=== PATIENT | female | born 1965 | race Caucasian/White ===

== ENCOUNTER 2025-01-27 14:43 | Inpatient (IN) ==
--- NOTE | 2025-01-27 15:07 | Emergency Department Note ---
Impression & Plan Anxiety and depression ED Provider Note Provider: Gigi Puentes MD CHIEF COMPLAINT: Anxiety and depression HISTORY OF PRESENT ILLNESS: Patient is a 59-year-old female history of anxiety depression reports worsening depression and intermittent thoughts of self-harm. Has been following with her primary care provider, counselors, psychiatrist. States she has been taking her medications. Has had occasional mild depression anxiety in the past but nothing to the severity for last several months. Initially started with an episode of mammograms care but that turned out okay. Has been able to get up and shower and brush her teeth but not eating much and losing weight. Has been now having intermittent thoughts of wanting to harm her self. Denies wanting to harm anyone else or hallucinations. Just is not functional and this is not like her. She states becoming frustrated and does not want to live like this. Over the last several weeks has been meeting with counselor and psychiatrist. States she feels quite anxious and has some trembling of her insides at times. PAST MEDICAL HISTORY: As noted above MEDICATIONS: Reviewed home medications SOCIAL HISTORY: , no drug or alcohol use PHYSICAL EXAM: GENERAL: alert and oriented on bed at bedside with Kleenex she is occasionally crying Head: normocephalic and atraumatic EYES: No injection, purulent discharge or icterus. Occasionally crying/tearful. EOMI. NECK: Trachea midline. ENT: Mucous membranes pink and moist. LUNGS: Airway patent. No retractions not significantly tachypneic. No work of breathing. HEART: Regular rate and rhythm. No chest wall tenderness ABDOMEN: Soft and non-tender, without guarding or rebound. SKIN: Acyanotic, warm, dry, without rashes EXTREMITIES: Without swelling, tenderness or deformity NEUROLOGICAL: No focal deficits. No aphasia. No facial droop or slurred speech. Normal strength and tone in the extremities. Sensation to gross touch normal. Ambulatory. Psych: Tearful and regularly crying, reports some passive SI but no clear plan. No HI. Not responding to external stimuli. Patient's laboratory studies and imaging reviewed. Differential includes Mood disorder, infection, hypoglycemia, electrolyte abnormalities, cardiac sources, intracerebral event, toxicologic, trauma, neurologic, as well as other pathologies. IMPRESSION/MEDICAL DECISION MAKING: Patient appears quite anxious and depressed actively crying. While has been able to complete some basic ADLs states she feels hopeless and she does not want to live like this where she cannot do what she wants to do. Normally is active with her grandchildren but has been able to for the last month or 2. Has been following outpatient counselor. Basic blood obtained here. No significant abnormalities noted. Doubt this is organic medical believe this is likely more psychiatric. She herself denies specific stressors at this time. Seen with case management social worker here. Voluntary inpatient referrals made. Evaluated by [facility] Accepted to [facility] for further inpatient psychiatric care. DIAGNOSIS: Anxiety and depression DISPOSITION: [facility] on 201. Past Med/Surg History Problem List (Updated 01/27/25 @ 15:26 by Gigi Puentes M.D.) Anxiety and depression (Acute) Weight loss, non-intentional Gastritis Abnormal mammogram of left breast Well adult on routine health check Bilateral knee pain Bilateral shoulder pain Acne Depression (Chronic) Anxiety (Chronic) Hyperlipidemia (Chronic) Medical History Shingles Surgical History No pertinent past surgical history Family History Aunt Breast cancer Brother Prostate cancer TIA (transient ischemic attack) Brother Prostate cancer Brother Prostate cancer Denies family history of Ovarian cancer Myocardial infarction Colorectal cancer Social History Smoking Status: Never smoker Second Hand Exposure: No; Hx Alcohol Use: No Hx Substance Use: No Preferred Language: Zimbabwean marital status: Current Living Situation: Spouse current occupational status: unemployed Feels Safe at Home: Yes Childhood Exposure to Second-Hand Smoke: Yes caffeine: Yes (coffee ) Dental Care, Regularly: Yes Physical Activity Frequency: Does not Exercise Seatbelt Use: always Gender Identity: Female Allergies Allergies Allergy/AdvReac Type Severity Reaction Status Date / Time No Known Allergies Allergy Verified 01/27/25 15:04 Home Meds Home Medications Medication Instructions Recorded Confirmed clonazepam 0.5 mg tablet 0.5 mg PO BID 01/27/25 01/27/25 sertraline 25 mg tablet (Zoloft) 50 mg PO DAILY 01/27/25 01/27/25 Previous Rx's Medication Instructions Recorded rosuvastatin 10 mg tablet (Crestor) 10 mg PO DAILY #90 tabs 11/04/24 lorazepam 0.5 mg tablet 1 mg (2 x 0.5 mg) PO HS PRN 12/07/24 anxiety #90 tabs buspirone 5 mg tablet See Rx Instructions PO BID #60 tabs 12/26/24 Results & Data (ED) Vital Signs Vital Signs - 24 hr 01/27/25 14:50 01/27/25 16:50 Temperature 37 C Temperature Source Temporal Artery Scan Pulse Rate 98 H Pulse Rate [Finger] 78 Pulse Rhythm [Finger] Regular Pulse Strength [Finger] Normal Respiratory Rate 16 16 Respiratory Effort / Characteristics Non-Labored Spontaneous Non-Labored Spontaneous Respiratory Depth Normal Normal Respiratory Pattern Regular Blood Pressure 182/81 H Blood Pressure [Right Arm] 171/104 H Blood Pressure Mean 114 Blood Pressure Mean [Right Arm] 126 Pulse Oximetry 98 97 Oxygen Delivery Method Room Air Room Air Sepsis Recent Fever Within 48 Hours No Sepsis New/Unexplained Change in Mental Status No Sepsis Action Taken by Nursing No Action Required Laboratory Data 01/27/25 15:40 01/27/25 15:40 Lab Results 01/27/25 01/27/25 01/27/25 Range/Units 15:31 15:35 15:40 WBC 8.46 (4.8-10.8) K/ul RBC 4.96 (4.20-5.40) M/uL Hgb 14.3 (12.0-16.0) g/dl Hct 43.4 (37.0-47.0) % MCV 87.5 (80.0-100.0) fL MCH 28.8 (25.0-34.0) pg MCHC 32.9 (32.0-36.0) g/dL RDW Std Deviation 42.1 (36.4-46.3) fL RDW Coeff of Greg 13.2 (11.5-14.5) % Plt Count 261 (130-400) K/uL MPV 12.0 (9.4-12.4) fL Immature Gran % (Auto) 0.2 % Neut % (Auto) 73.8 % Lymph % (Auto) 19.9 % [place] % (Auto) 4.8 % Eos % (Auto) 0.9 % Baso % (Auto) 0.4 % Neut # (Auto) 6.24 (1.40-6.50) K/uL Lymph # (Auto) 1.68 (1.20-3.40) K/uL [place] # (Auto) 0.41 (0.11-0.59) K/uL Eos # (Auto) 0.08 (0.00-0.50) K/uL Baso # (Auto) 0.03 (0.00-0.20) K/uL Immature Gran # (Auto) 0.02 (0.01-0.20) K/uL Sodium 137 (136-145) mmol/L Potassium 3.8 (3.5-5.1) mmol/L Chloride 100 (98-107) mmol/L Carbon Dioxide 33 H (21-32) mmol/L Anion Gap 4 (3-11) BUN 10 (6-23) mg/dl Creatinine 1.09 (0.6-1.2) mg/dl Est Cr Clr Drug Dosing 46.8 ml/min eGFR 57.80 BUN/Creatinine Ratio 9.2 L (10-20) Glucose 113 H (70-99(Fasting)) mg/dl Calcium 10.3 (8.6-10.3) mg/dl Total Bilirubin 1.6 H (0.2-1.0) mg/dl AST 21 (13-39) U/L ALT 13 (7-52) U/L Alkaline Phosphatase 70 (34-104) U/L Total Protein 8.4 H (6.0-8.3) gm/dl Albumin 5.1 H (3.4-5.0) gm/dl Globulin 3.3 (2.5-4.0) gm/dl Albumin/Globulin Ratio 1.5 (0.9-2) TSH 1.827 (0.300-4.500) uIu/ml Urine Color Yellow Urine Appearance Clear (Clear) Urine pH 5.0 (4.5-7.5) Ur Specific [place] 1.009 (1.000-1.030) Urine Protein Negative (Negative) Urine Glucose (UA) Negative (Negative) Urine Ketones Negative (Negative) Urine Blood Negative (Negative) Urine Nitrite Negative (Negative) Urine Bilirubin Negative (Negative) Urine Urobilinogen Negative (Negative) Ur Leukocyte Esterase Negative (Negative) Salicylates < 3.0 L (3.0-30) mg/dl Urine Opiates Screen Neg (Neg) Ur Methadone, Qual Neg (Neg) Urine Fentanyl Screen Neg (Neg) Acetaminophen < 3 L (10-30) ug/ml Urine Barbiturates Neg (Neg) Ur Phencyclidine (PCP) Neg (Neg) U Amphetamin/Meth Scrn Neg (Neg) MDMA (Ecstasy) Screen Neg (Neg) U Benzodiazepines Scrn Neg (Neg) Ur Cocaine Metabolite Neg (Neg) U Marijuana (THC) Screen Neg (Neg) Ethyl Alcohol mg/dL < 10.0 (<10.0) mg/dl SARS-CoV-2, RNA, NAAT NEGATIVE (NEGATIVE) Discharge Plan Visit Data Chief Complaint: Mental Health Evaluation Stated Complaint: ANXIETY AND DEPRESSION ED Provider: Gigi Puentes Discharge Problem: Anxiety and depression Patient Disposition: Admitted As Inpatient Discharge Instructions Interventions: ED Discharge Assessment Last Done: 01/27/25 18:22
[2025-01-27 16:02] LABS: Basophils # (auto) 0.03 K/uL (0.00-0.20); Basophils % (auto) 0.4 %; Eosinophils # (auto) 0.08 K/uL (0.00-0.50); Eosinophils % (auto) 0.9 %; Hematocrit (blood only) 43.4 % (37.0-47.0); Hemoglobin 14.3 g/dl (12.0-16.0); Immature Granulocytes # (auto) 0.02 K/uL (0.01-0.20); Immature Granulocytes % (auto) 0.2 %; Lymphocytes # (auto) 1.68 K/uL (1.20-3.40); Lymphocytes % (auto) 19.9 %; Mean Corpuscular Hemoglobin 28.8 pg (25.0-34.0); Mean Corpuscular Hgb Conc 32.9 g/dL (32.0-36.0); Mean Corpuscular Volume 87.5 fL (80.0-100.0); Monocytes # (auto) 0.41 K/uL (0.11-0.59); Monocytes % (auto) 4.8 %; Neutrophils # (auto) 6.24 K/uL (1.40-6.50); Neutrophils % (auto) 73.8 %; Platelet Count 261 K/uL (130-400); RDW Coefficient of Variation 13.2 % (11.5-14.5); RDW Standard Deviation 42.1 fL (36.4-46.3); Red Blood Count 4.96 M/uL (4.20-5.40); White Blood Count 8.46 K/ul (4.8-10.8)
[2025-01-27 16:15] LABS: Albumin Globulin Ratio 1.5 (0.9-2); Albumin Level 5.1 gm/dl (3.4-5.0); BUN Creatinine Ratio 9.2 (10-20); Bilirubin,Total 1.6 mg/dl (0.2-1.0); Calcium 10.3 mg/dl (8.6-10.3); Creatinine Clr Calc Pharmacy 46.8 ml/min; Globulin 3.3 gm/dl (2.5-4.0); Potassium 3.8 mmol/L (3.5-5.1); Total Protein 8.4 gm/dl (6.0-8.3)
[2025-01-27 16:16] LABS: Appearance Urine Clear (Clear); Bilirubin Urine Negative (Negative); Blood Urine Negative (Negative); Color Urine Yellow; Glucose Urine UA Negative (Negative); Ketones Urine Negative (Negative); Leukocyte Esterase Urine Negative (Negative); Nitrite Urine Negative (Negative); Protein Urine Negative (Negative); Specific Gravity Urine 1.009 (1.000-1.030); Urobilinogen Urine Negative (Negative)
[2025-01-27 16:17] LABS: Acetaminophen < 3 ug/ml (10-30); Salicylate < 3.0 mg/dl (3.0-30)
[2025-01-27 16:29] LABS: Thyroid Stimulating Hormone 1.827 uIu/ml (0.300-4.500)
[2025-01-27 16:47] LABS: Amphetamines+Metham, Urine Neg (Neg); Barbiturates, Urine Neg (Neg); Benzodiazepine, Urine Neg (Neg); Cocaine, Urine Neg (Neg); Fentanyl, Urine Neg (Neg); MDMA (Ecstacy), Urine Neg (Neg); Marijuana, Urine Neg (Neg); Methadone, Urine Neg (Neg); Opiate, Urine Neg (Neg); Phencyclidine, Urine Neg (Neg)
[2025-01-27] MEDS ORDERED: ACETAMINOPHEN 325 MG TAB PO PRN (19:08)
[2025-01-27] MEDS ORDERED: SODIUM CHLORIDE 0.65% NA SOLN 45 ML (OCEAN) PRN (19:08)
[2025-01-27] MEDS ORDERED: ALUMINUM/MAGNESIUM SUSP 30 ML UDC PO PRN (19:08)
[2025-01-27] MEDS ORDERED: BISMUTH SUBSALICYLATE 262 MG CHEW PO PRN (19:08)
[2025-01-27] MEDS: hydrOXYzine HCl 25 MG TAB PO PRN (19:33)
[2025-01-27] MEDS: LORazepam 0.5 MG TAB PO PRN (22:13)
[2025-01-28] MEDS ORDERED: ROSUVASTATIN CALCIUM 10 MG TAB PO SCH (09:00)
[2025-01-28] MEDS: SERTRALINE HCL 50 MG TABLET PO SCH (09:53)
--- NOTE | 2025-01-28 16:11 | History & Physical ---
Date of Service January 28, 2025 Impression / Recommendations Impression CORNELIA ANDRES is a 59-year-old F who currently lives with , has a history of depression and anxiety, and was admitted on 01/27/25 17:45 on a 201 voluntary commitment for anxiety and depression. Presentation consistent with major depressive disorder, recurrent, moderate to severe with anxious distress. Patient presents history of major depressive episodes with past resolution with sertraline. No clear evidence for generalized anxiety disorder and will clarify. No history of salas/hypomania/psychosis. Recent depressive episode likely triggered due to social isolation and health scare. Labs reviewed: CBC, CMP, TSH, UA, UDS, blood alcohol level unremarkable. Medications reviewed with the patient and will titrate sertraline and start propranolol for physical symptoms of anxiety; medication side effects and adverse effects discussed with the patient and she is agreeable. Would likely benefit from increased community engagement to combat social isolation. Overall, I spent a total of 75 minutes with this case including review of chart records, nursing report, review of lab work, direct evaluation of the patient at bedside, counseling the patient, multidisciplinary team meeting, orders, and documentation in the electronic health record. (1) Major depressive disorder, recurrent episode, moderate with anxious distress: (2) Weight loss, non-intentional: (3) Palpitations: Plan 01/28/2025:The patient was admitted to the [facility] ([facility]) on q15 min checks (behavioral with suicide precautions) for safety. The patient will participate in group, recreational, and milieu therapies and will be offered additional individual and family sessions as clinically appropriate. -Increase sertraline to 50 mg daily -Start propranolol 10 mg 3 times daily -Draw labs: Hemoglobin A1c, fasting lipid panel, vitamin D, vitamin B12 Inventory Assets Strengths: social supports, intelligence Needs: improved coping skills, medication adjustment Suicide Risk Level Suicide Risk Level: Moderate (q15 min suicide checks) Risk Factors Assessment Male: No : Yes Do You Have Access To A Gun?: Yes Health Problems: No Mental Health Diagnoses: Yes Substance Use Disorders: No Previous Attempt: No Family History of Suicide: No Previous Psychiatric Hospitalization: No Hopelessness: No Protective Factors Assessment Advent Beliefs: Yes : Yes Responsible for Young Children: No Employed: No Stable Relationships: Yes Supportive Family: Yes Good Rapport with Provider: Yes Absence of Any Risk Factors Above: No Psychiatric History Identifying Data CORNELIA ANDRES is a 59-year-old F who currently lives with , has a history of depression and anxiety, and was admitted on 01/27/25 17:45 on a 201 voluntary commitment for anxiety and depression. Chief Complaint "Anxiety and depression" History of Present Illness Patient reports feeling more anxious and depressed at the end of October. At that time she was getting mammogram results and had to do a recheck. Reports spiraling into worsening anxiety thinking of the worst case scenario. This was heightened by the fact that she has multiple fan members with a history of cancer from cancer. In addition her great nephew has had escalating health problems and this was on her mind. Since then has had a low mood, poor appetite, sleep dysfunction, amotivation, isolating behavior, increased physical anxiety. Complains of increased heart rate, sweating, shaking, crying spells, stomach discomfort. Denies a feeling of doom or tunnel vision. Reports past Zoloft for a few years and was effective and self-discontinued on February 2024. Denies periods of excess worry between depressive episodes. Was recently placed on Lexapro however patient was having crying spells and possible panic attack and was discontinued by ER physician. Reports feeling better here in the structured environment. 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 Denies having any GI side effects from Zoloft. Patient complains of depressed mood, inability to enjoy activities, disturbances in sleep, loss of interest, change in appetite, decreased libido, racing thoughts, crying spells, anxiety attacks, avoidance symptoms, hopelessness. Reports history of suicidal ideation however denies currently. Last SI thought was a few days ago. Denies current plan or means. Wants to learn improved coping strategies for anxiety and depression and get medication adjustments. Substance and alcohol use: No past drug or alcohol treatment. Denies alcohol or drug use.Past tobacco smoker quit 40 years ago. No caffeinated beverages daily. Medical history: Last menstrual period at 46 years of age. 4 pregnancies to live births. Family history of prostate cancer, pancreatic cancer. Psychiatric history: No past psychiatric hospitalizations. Depression and anxiety in sister and mother and alcohol dependence in brother. Sister and mother both on Lexapro. Past Psychiatric medications: clonazepam (for sleep), buspirone (for anxiety/ineffective), sertraline (Up to 100 mg,effective and was on it for a few years), Ambien (for sleep, 10 years ago, not currently taking), Ativan (for anxiety and sleep, effective), escitalopram (prematurely discontinued), Effexor (12 to 15 years ago and effective) Social history:Has outpatient PCP Dr. Jose Martin Rivas [facility], outpatient psychiatrist Dr. Hammond [facility], and counselor Rajani Cain at [facility]. Has been going to outpatient appointments and taking meds as prescribed. Resides in [facility], lives in a home with for the past 39 years. Denies violence in the home and can return home after discharge. Has access to transportation. no housing concerns. Grew up in a supportive household with 6 siblings. Father worked in construction and mother was a homemaker. Left home at 16 years of age. Sister in 2011 and father in 2014. Currently and sexually active with a heterosexual orientation. His spouse is retired. No past marriages. 2 adult children. Highest grade comp leted is 12th grade. 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 No legal problems or arrests. No particular caodaism or spiritual group. Exercises and eats healthy. Past Psychiatric History Current Psychiatric Diagnosis: Depression/Anxiety Do You Have Access To A Gun?: Yes History of Previous Suicide Attempt: No Allergies Allergy/AdvReac Type Severity Reaction Status Date / Time No Known Allergies Allergy Verified 01/27/25 15:04 Home Medications Medication Instructions Recorded Confirmed Type rosuvastatin 10 mg tablet (Crestor) 10 mg PO DAILY #90 tabs 11/04/24 01/27/25 Rx lorazepam 0.5 mg tablet 1 mg (2 x 0.5 mg) PO HS PRN 12/07/24 01/27/25 Rx anxiety #90 tabs buspirone 5 mg tablet See Rx Instructions PO BID #60 tabs 12/26/24 01/27/25 Rx clonazepam 0.5 mg tablet 0.5 mg PO BID 01/27/25 01/27/25 History sertraline 25 mg tablet (Zoloft) 50 mg PO DAILY 01/27/25 01/27/25 History Family History Family History of: None Alcohol History Hx of Alcohol Use Over the Past 12 Months: No AUDIT Total Score: 1 Smoking Use Have You Smoked or Used Tobacco Products in the Last 30 Days: No Smoking Status: Never smoker Substance History Hx of Prescription Med Misuse Over the Past 12 Months: No Hx of Over the Counter Med Misuse Over the Past 12 Months: No Hx of Inhalent Misuse Over the Past 12 Months: No Hx of Organic Substance Use Over the Past 12 Months: No Hx of Illegal Substances/Street Drug Use Over Past 12 Months: No Problems as a Result of Past Substance Use: None Identified Personal History Living Arrangements: Home Highest Grade Completed: High School Graduate Highest Grade Completed Comment: 12 Marital Status: Number Of Children: 2 Beliefs That Will Affect Care: None Patient History Medical History Shingles Surgical History No pertinent past surgical history Family History Aunt Breast cancer Brother Prostate cancer TIA (transient ischemic attack) Brother Prostate cancer Brother Prostate cancer Denies family history of Ovarian cancer Myocardial infarction Colorectal cancer Social History Smoking Status: Never smoker Second Hand Exposure: No; Hx Alcohol Use: No Hx Substance Use: No Preferred Language: Uzbek Communication Ability: Effective 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 Beliefs That Will Affect Care: None marital status: Current Living Situation: Spouse current occupational status: unemployed Feels Safe at Home: Yes Childhood Exposure to Second-Hand Smoke: Yes caffeine: Yes (coffee ) Dental Care, Regularly: Yes Physical Activity Frequency: Does not Exercise Seatbelt Use: always Gender Identity: Female Assistive Devices: Glasses Physical Exam Mental Examination: Appearance: Well Groomed Eye Contact: Maintains Eye Contact Motor Behavior: Unremarkable Speech: Soft Mood: Euthymic and Calm Affect: Anxious and Appropriate Thought Process: Intact and Linear Thought Content: Intact Hallucinations: None Insight: Fair (to limited) Judgement: Fair (to limited) Vital Signs (Past 24 Hours): Last Vital Signs Temp 36.6 C 01/28/25 06:33 Pulse 69 01/28/25 06:33 Resp 16 01/28/25 06:33 BP 120/70 01/28/25 06:33 Pulse Ox 96 01/27/25 19:25 O2 Del Method Room Air 01/27/25 19:25 Exam Statement: A physical exam was performed in the ED for the purposes of medical clearance. I accept that physical as correct and adequate for the purposes of the inpatient physical exam. Results & Data ([facility]) Laboratory Results Laboratory Results - last 24 hr 01/27/25 01/27/25 01/27/25 15:31 15:35 15:40 WBC 8.46 RBC 4.96 Hgb 14.3 Hct 43.4 MCV 87.5 MCH 28.8 MCHC 32.9 RDW Std Deviation 42.1 RDW Coeff of Greg 13.2 Plt Count 261 MPV 12.0 Immature Gran % (Auto) 0.2 Neut % (Auto) 73.8 Lymph % (Auto) 19.9 [place] % (Auto) 4.8 Eos % (Auto) 0.9 Baso % (Auto) 0.4 Neut # (Auto) 6.24 Lymph # (Auto) 1.68 [place] # (Auto) 0.41 Eos # (Auto) 0.08 Baso # (Auto) 0.03 Immature Gran # (Auto) 0.02 Sodium 137 Potassium 3.8 Chloride 100 Carbon Dioxide 33 H Anion Gap 4 BUN 10 Creatinine 1.09 Est Cr Clr Drug Dosing 46.8 eGFR 57.80 BUN/Creatinine Ratio 9.2 L Glucose 113 H Calcium 10.3 Total Bilirubin 1.6 H AST 21 ALT 13 Alkaline Phosphatase 70 Total Protein 8.4 H Albumin 5.1 H Globulin 3.3 Albumin/Globulin Ratio 1.5 TSH 1.827 Urine Color Yellow Urine Appearance Clear Urine pH 5.0 Ur Specific [place] 1.009 Urine Protein Negative Urine Glucose (UA) Negative Urine Ketones Negative Urine Blood Negative Urine Nitrite Negative Urine Bilirubin Negative Urine Urobilinogen Negative Ur Leukocyte Esterase Negative Salicylates < 3.0 L Urine Opiates Screen Neg Ur Methadone, Qual Neg Urine Fentanyl Screen Neg Acetaminophen < 3 L Urine Barbiturates Neg Ur Phencyclidine (PCP) Neg U Amphetamin/Meth Scrn Neg MDMA (Ecstasy) Screen Neg U Benzodiazepines Scrn Neg Ur Cocaine Metabolite Neg U Marijuana (THC) Screen Neg Ethyl Alcohol mg/dL < 10.0 SARS-CoV-2, RNA, NAAT NEGATIVE Current Inpatient Medications Current Inpatient Medications: Current Inpatient Medications Acetaminophen (Acetaminophen 325 Mg Tab) 650 mg PO Q4H PRN PRN Reason: Headache or Minor Fever Stop: 04/06/25 19:07 Al Hydrox/Mg Hydrox/Simethicone (Aluminum/Magnesium Susp 30 Ml Udc) 30 ml PO Q4H PRN PRN Reason: GI Upset Stop: 02/26/25 19:07 Bismuth Subsalicylate (Bismuth Subsalicylate 262 Mg Chew) 2 tab PO Q30M PRN PRN Reason: Loose Stool/Diarrhea Stop: 02/26/25 19:07 Hydroxyzine HCl (Hydroxyzine Hcl 25 Mg Tab) 50 mg PO HSZ PRN PRN Reason: Insomnia Stop: 02/26/25 19:07 Hydroxyzine HCl (Hydroxyzine Hcl 25 Mg Tab) 25 mg PO Q4H PRN PRN Reason: Anxiety Stop: 02/26/25 19:07 Last Admin: 01/28/25 10:59 Dose: 25 mg Lorazepam (Lorazepam 0.5 Mg Tab) 0.5 mg PO TID PRN PRN Reason: Anxiety Stop: 02/26/25 19:16 Last Admin: 01/28/25 08:56 Dose: 0.5 mg Magnesium Hydroxide (Magnesium Hydroxide Susp 30 Ml Udc) 30 ml PO DAILY PRN PRN Reason: Constipation Stop: 02/26/25 19:07 Propranolol HCl (Propranolol Hcl 10 Mg Tab) 10 mg PO TID MANJU Stop: 02/27/25 20:59 Rosuvastatin Calcium (Rosuvastatin Calcium 10 Mg Tab) 10 mg PO HS MANJU Stop: 02/27/25 21:59 Sertraline HCl (Sertraline Hcl 50 Mg Tablet) 50 mg PO DAILY MANJU Stop: 02/28/25 08:59 Sodium Chloride (Sodium Chloride 0.65% Na Soln 45 Ml ([place])) 1 - 2 sprays NA PRN PRN PRN Reason: Nasal Dryness/Congestion Stop: 02/26/25 19:07
[2025-01-28] MEDS: PROPRANOLOL HCL 10 MG TAB PO SCH (21:23)
[2025-01-28] MEDS: ROSUVASTATIN CALCIUM 10 MG TAB PO SCH (21:23)
[2025-01-28] MEDS: hydrOXYzine HCl 25 MG TAB PO PRN (21:51)
[2025-01-29] MEDS: SERTRALINE HCL 50 MG TABLET PO SCH (08:47)
[2025-01-29 08:53] LABS: Chol HDL Ratio 2.9 (0-5)
[2025-01-29 09:12] LABS: Estimated Average Glucose 111 mg/dl; Hemoglobin A1C 5.5 % (4.5-5.6)
[2025-01-29] MEDS: MAGNESIUM HYDROXIDE SUSP 30 ML UDC PO PRN (09:18)
[2025-01-29] MEDS: PSYLLIUM or GUAR GUM FIBER 4GM PACKET PO SCH (12:57)
--- NOTE | 2025-01-29 15:17 | Psychiatric Progress Note ---
Date of Service January 29, 2025 Impression / Recommendations Impression CORNELIA ANDRES is a 59-year-old F who currently lives with , has a history of depression and anxiety, and was admitted on 01/27/25 17:45 on a 201 voluntary commitment for anxiety and depression. Presentation consistent with major depressive disorder, recurrent, moderate to severe with anxious distress. Patient presents history of major depressive episodes with past resolution with sertraline. No clear evidence for generalized anxiety disorder and will clarify. No history of salas/hypomania/psychosis. Recent depressive episode likely triggered due to social isolation and health scare. A:Patient is tolerating the propranolol well with a decrease in physical symptoms of anxiety and will plan to continue. Patient continues to have racing thoughts and concern for compatibility with a roommate. Patient continues to ruminate about her condition and lack of improvement. Labs reviewed and A1C, lipid panel, B12 unremarkable; Vit D low and insufficient. Overall, I spent a total of 35 minutes with this case including review of chart records, nursing report, review of lab work, direct evaluation of the patient at bedside, counseling the patient, multidisciplinary team meeting, orders, and do cumentation in the electronic health record. (1) Major depressive disorder, recurrent episode, moderate with anxious distress: (2) Weight loss, non-intentional: (3) Palpitations: (4) Vitamin D insufficiency: Plan 01/29/2025: MNPR due to excess anxiety Start daily fiber supplement Start Vit D 5000u daily Automatic thoughts worksheet 01/28/2025:The patient was admitted to the [facility] ([facility]) on q15 min checks (behavioral with suicide precautions) for safety. The patient will participate in group, recreational, and milieu therapies and will be offered additional individual and family sessions as clinically appropriate. -Increase sertraline to 50 mg daily -Start propranolol 10 mg 3 times daily -Draw labs: Hemoglobin A1c, fasting lipid panel, vitamin D, vitamin B12 Inventory Assets Strengths: social supports, intelligence Needs: improved coping skills, medication adjustment Suicide Risk Level Suicide Risk Level: Moderate (q15 min suicide checks) Risk Factors Assessment Male: No : Yes Do You Have Access To A Gun?: Yes Health Problems: No Mental Health Diagnoses: Yes Substance Use Disorders: No Previous Attempt: No Family History of Suicide: No Previous Psychiatric Hospitalization: No Hopelessness: No Protective Factors Assessment Jew Beliefs: Yes : Yes Responsible for Young Children: No Employed: No Stable Relationships: Yes Supportive Family: Yes Good Rapport with Provider: Yes Absence of Any Risk Factors Above: No Interval History Identifying Information CORNELIA ANDRES is a 59-year-old F who currently lives with , has a history of depression and anxiety, and was admitted on 01/27/25 17:45 on a 201 voluntary commitment for anxiety and depression. Chief Complaint "Little anxious" Review of Systems Sleep Information Total Hours of Sleep: 5.5 Meal Information Percent Meal Consumed - Breakfast: 50 Percent Meal Consumed - Lunch: 0 Percent Meal Consumed - Dinner: 50 Nutrition Comment: patient c/o upset stomach Subjective Subjective Patient was seen & assessed and interval progress reviewed with treatment team nursing and social work Patient reports increased anxiety and has trouble going to sleep due to having a roommate. Says that even though her roommate is very nice and friendly she has difficulty controlling physical and mental symptoms of anxiety due to the new environment and new people. She reports ongoing shaking and sweating however physical symptoms have lessened with no recent palpitations or feeling overly excitable. Was able to eat breakfast this morning. Having sleep maintenance problems. Did not have a bowel movement this morning. She denies suicidal ideation. Physical Exam Mental Examination Appearance: Well Groomed Eye Contact: Maintains Eye Contact Motor Behavior: Unremarkable Speech: Soft Mood: Euthymic and Calm Affect: Anxious and Appropriate Thought Process: Intact and Linear Thought Content: Intact Hallucinations: None Insight: Fair (to limited) Judgement: Fair (to limited) Vital Signs (Past 24 Hours) Last Vital Signs Temp 36.7 C 01/29/25 06:36 Pulse 62 01/29/25 14:29 Resp 16 01/29/25 06:36 BP 131/76 01/29/25 14:29 Pulse Ox 96 01/27/25 19:25 O2 Del Method Room Air 01/27/25 19:25 Results & Data ([facility]) Laboratory Results Laboratory Results - last 24 hr 01/29/25 08:13 Estimat Average Glucose 111 Hemoglobin A1c 5.5 Triglycerides 88 Cholesterol 143 LDL Cholesterol, Calc 76 VLDL Cholesterol, Calc 18 HDL Cholesterol 49 Cholesterol/HDL Ratio 2.9 Vitamin B12 300 25-OH Vitamin D Total 23.7 L Current Inpatient Medications Current Inpatient Medications: Current Inpatient Medications Acetaminophen (Acetaminophen 325 Mg Tab) 650 mg PO Q4H PRN PRN Reason: Headache or Minor Fever Stop: 02/26/25 19:07 Al Hydrox/Mg Hydrox/Simethicone (Aluminum/Magnesium Susp 30 Ml Udc) 30 ml PO Q4H PRN PRN Reason: GI Upset Stop: 02/26/25 19:07 Bismuth Subsalicylate (Bismuth Subsalicylate 262 Mg Chew) 2 tab PO Q30M PRN PRN Reason: Loose Stool/Diarrhea Stop: 02/26/25 19:07 Hydroxyzine HCl (Hydroxyzine Hcl 25 Mg Tab) 50 mg PO HSZ PRN PRN Reason: Insomnia Stop: 02/26/25 19:07 Last Admin: 01/28/25 21:51 Dose: 50 mg Hydroxyzine HCl (Hydroxyzine Hcl 25 Mg Tab) 25 mg PO Q4H PRN PRN Reason: Anxiety Stop: 02/26/25 19:07 Last Admin: 01/28/25 10:59 Dose: 25 mg Lorazepam (Lorazepam 0.5 Mg Tab) 0.5 mg PO TID PRN PRN Reason: Anxiety Stop: 02/26/25 19:16 Last Admin: 01/28/25 08:56 Dose: 0.5 mg Magnesium Hydroxide (Magnesium Hydroxide Susp 30 Ml Udc) 30 ml PO DAILY PRN PRN Reason: Constipation Stop: 02/26/25 19:07 Last Admin: 01/29/25 09:18 Dose: 30 ml Propranolol HCl (Propranolol Hcl 10 Mg Tab) 10 mg PO TID MANJU Stop: 02/27/25 20:59 Last Admin: 01/29/25 14:28 Dose: 10 mg Psyllium Hydrophilic Mucilloid (Psyllium Or Guar Gum Fiber 4gm Packet) 4 gm PO QAM MANJU Stop: 02/28/25 12:29 Last Admin: 01/29/25 12:57 Dose: 4 gm Rosuvastatin Calcium (Rosuvastatin Calcium 10 Mg Tab) 10 mg PO HS MANJU Stop: 02/27/25 21:59 Last Admin: 01/28/25 21:23 Dose: 10 mg Sertraline HCl (Sertraline Hcl 50 Mg Tablet) 50 mg PO DAILY MANJU Stop: 02/28/25 08:59 Last Admin: 01/29/25 08:47 Dose: 50 mg Sodium Chloride (Sodium Chloride 0.65% Na Soln 45 Ml ([place])) 1 - 2 sprays NA PRN PRN PRN Reason: Nasal Dryness/Congestion Stop: 02/26/25 19:07 Mental Health & Subst Abuse Tx Therapist Name of Therapist: Rajani Lee Stationary Engineer Supervisor Name of Stationary Engineer Supervisor: None Post Discharge Appointments Primary Care Physician Name Of Family Doctor/PCP: Dr. Jose Martin Rivas
[2025-01-29] MEDS: CHOLECALCIFEROL 125 MCG (5,000 UNITS) TAB PO SCH (15:28)
[2025-01-30] MEDS: LORazepam 0.5 MG TAB PO PRN (12:09)
--- NOTE | 2025-01-30 12:52 | Psychiatric Progress Note ---
Date of Service January 30, 2025 Impression / Recommendations Impression CORNELIA ANDRES is a 59-year-old F who currently lives with , has a history of depression and anxiety, and was admitted on 01/27/25 17:45 on a 201 voluntary commitment for anxiety and depression. Presentation consistent with major depressive disorder, recurrent, moderate to severe with anxious distress. Patient presents history of major depressive episodes with past resolution with sertraline. No clear evidence for generalized anxiety disorder and will clarify. No history of salas/hypomania/psychosis. Recent depressive episode likely triggered due to social isolation and health scare. A:Patient complaining of diarrhea likely secondary to initiation of antidepressant and excess intake of food. Patient was counseled to make healthy food choices and control intake. Propranolol has been effective however patient's blood pressure is decreased; we will administer half dose 3 times daily and monitor vitals. Continues to have significant sleep maintenance dysfunction and we will schedule low-dose of lorazepam at night. Patient deficient in vitamin D and started on daily supplementation. Overall, I spent a total of 35 minutes with this case including review of chart records, nursing report, review of lab work, direct evaluation of the patient at bedside, counseling the patient, multidisciplinary team meeting, orders, and documentation in the electronic health record. (1) Major depressive disorder, recurrent episode, moderate with anxious distress: (2) Weight loss, non-intentional: (3) Palpitations: (4) Vitamin D insufficiency: Plan 01/30/2025: Reduce propranolol to 5 mg 3 times daily Start lorazepam 0.5 mg at bedtime 01/29/2025: MNPR due to excess anxiety Start daily fiber supplement Start Vit D 5000u daily Automatic thoughts worksheet 01/28/2025:The patient was admitted to the [facility] ([facility] mental health unit) on q15 min checks (behavioral with suicide precautions) for safety. The patient will participate in group, recreational, and milieu therapies and will be offered additional individual and family sessions as clinically appropriate. -Increase sertraline to 50 mg daily -Start propranolol 10 mg 3 times daily -Draw labs: Hemoglobin A1c, fasting lipid panel, vitamin D, vitamin B12 Inventory Assets Strengths: social supports, intelligence Needs: improved coping skills, medication adjustment Suicide Risk Level Suicide Risk Level: Moderate (q15 min suicide checks) Risk Factors Assessment Male: No : Yes Do You Have Access To A Gun?: Yes Health Problems: No Mental Health Diagnoses: Yes Substance Use Disorders: No Previous Attempt: No Family History of Suicide: No Previous Psychiatric Hospitalization: No Hopelessness: No Protective Factors Assessment Episcopal Beliefs: Yes : Yes Responsible for Young Children: No Employed: No Stable Relationships: Yes Supportive Family: Yes Good Rapport with Provider: Yes Absence of Any Risk Factors Above: No Interval History Identifying Information CORNELIA ANDRES is a 59-year-old F who currently lives with , has a history of depression and anxiety, and was admitted on 01/27/25 17:45 on a 201 voluntary commitment for anxiety and depression. Chief Complaint Anxiety Review of Systems Sleep Information Total Hours of Sleep: 5.5 Meal Information Percent Meal Consumed - Breakfast: 75 Percent Meal Consumed - Lunch: 0 Percent Meal Consumed - Dinner: 80 Nutrition Comment: patient c/o upset stomach Subjective Subjective Patient was seen & assessed and interval progress reviewed with treatment team nursing and social work Overnight patient slept 5.5 hours. Having repeated episodes of diarrhea. Endorsed high anxiety. BP slightly low this a.m. at 93/60. On interview the patient reports feeling more restless. Reports ongoing diarrhea throughout the night. Feels less anxious having a private room. Reports no past GI distress when initiating SSRI antidepressants. Reports not being able to sleep through the night. Complains of low mood. Reports physical symptoms of shaking and sweating recurred this morning and did not get nightly propranolol due to low blood pressure. Denies feeling dizzy or lightheaded. Denies SI. Physical Exam Mental Examination Appearance: Well Groomed Eye Contact: Maintains Eye Contact Motor Behavior: Unremarkable Speech: Soft Mood: Euthymic and Calm Affect: Anxious and Appropriate Thought Process: Intact and Linear Thought Content: Intact Hallucinations: None Insight: Fair (to limited) Judgement: Fair (to limited) Vital Signs (Past 24 Hours) Last Vital Signs Temp 36.7 C 01/30/25 06:35 Pulse 73 01/30/25 06:36 Resp 16 01/30/25 06:35 BP 93/60 L 01/30/25 06:36 Pulse Ox 96 01/27/25 19:25 O2 Del Method Room Air 01/27/25 19:25 Results & Data ([facility]) Current Inpatient Medications Current Inpatient Medications: Current Inpatient Medications Acetaminophen (Acetaminophen 325 Mg Tab) 650 mg PO Q4H PRN PRN Reason: Headache or Minor Fever Stop: 02/26/25 19:07 Al Hydrox/Mg Hydrox/Simethicone (Aluminum/Magnesium Susp 30 Ml Udc) 30 ml PO Q4H PRN PRN Reason: GI Upset Stop: 02/26/25 19:07 Bismuth Subsalicylate (Bismuth Subsalicylate 262 Mg Chew) 2 tab PO Q30M PRN PRN Reason: Loose Stool/Diarrhea Stop: 02/26/25 19:07 Hydroxyzine HCl (Hydroxyzine Hcl 25 Mg Tab) 50 mg PO HSZ PRN PRN Reason: Insomnia Stop: 02/26/25 19:07 Last Admin: 01/29/25 20:57 Dose: 50 mg Hydroxyzine HCl (Hydroxyzine Hcl 25 Mg Tab) 25 mg PO Q4H PRN PRN Reason: Anxiety Stop: 02/26/25 19:07 Last Admin: 01/28/25 10:59 Dose: 25 mg Lorazepam (Lorazepam 0.5 Mg Tab) 0.5 mg PO BID PRN PRN Reason: Anxiety Stop: 02/26/25 19:16 Last Admin: 01/30/25 12:09 Dose: 0.5 mg Lorazepam (Lorazepam 0.5 Mg Tab) 0.5 mg PO HS MANJU Stop: 03/01/25 21:59 Magnesium Hydroxide (Magnesium Hydroxide Susp 30 Ml Udc) 30 ml PO DAILY PRN PRN Reason: Constipation Stop: 02/26/25 19:07 Last Admin: 01/29/25 09:18 Dose: 30 ml Propranolol HCl (Propranolol Hcl 10 Mg Tab) 5 mg PO TID MANJU Stop: 03/01/25 13:59 Psyllium Hydrophilic Mucilloid (Psyllium Or Guar Gum Fiber 4gm Packet) 4 gm PO QAM MANJU Stop: 02/28/25 12:29 Last Admin: 01/30/25 08:42 Dose: Not Given Rosuvastatin Calcium (Rosuvastatin Calcium 10 Mg Tab) 10 mg PO HS MANJU Stop: 02/27/25 21:59 Last Admin: 01/29/25 20:56 Dose: 10 mg Sertraline HCl (Sertraline Hcl 50 Mg Tablet) 50 mg PO DAILY MANJU Stop: 02/28/25 08:59 Last Admin: 01/30/25 08:41 Dose: 50 mg Sodium Chloride (Sodium Chloride 0.65% Na Soln 45 Ml ([place])) 1 - 2 sprays NA PRN PRN PRN Reason: Nasal Dryness/Congestion Stop: 02/26/25 19:07 Vitamin D (Cholecalciferol 125 Mcg (5,000 Units) Tab) 125 mcg PO QAM MANJU Stop: 02/28/25 15:14 Last Admin: 01/30/25 08:41 Dose: 125 mcg Mental Health & Subst Abuse Tx Psychiatrist Name of Psychiatrist: [facility] Psychiatrist's Date Of Appointment With Psychiatric Provider: 02/13/25 Time of Appointment with Psychiatrist: 11AM Psychiatric Appointment Comment: In person appt Therapist Name of Therapist: Rajani Lee Therapist's Date of Therapist Appointment: 02/09/25 Time of Therapist Appointment: 11AM Therapy Appointment Comment: appt on 02/02 canceled Lead Section Supervisor Name of Lead Section Supervisor: None Post Discharge Appointments Primary Care Physician Name Of Family Doctor/PCP: Dr. Jose Martin Rivas Contact Information Discharge Discharge Address: [address] [place] [address], [place] [address]
[2025-01-30] MEDS: PROPRANOLOL HCL 10 MG TAB PO SCH (15:04)
[2025-01-30] MEDS: LORazepam 0.5 MG TAB PO SCH (20:49)
[2025-01-31] MEDS: SERTRALINE HCL 50 MG TABLET PO ONE (12:07)
--- NOTE | 2025-01-31 14:07 | Psychiatric Progress Note ---
Date of Service January 31, 2025 Impression / Recommendations Impression CORNELIA ANDRES is a 59-year-old F who currently lives with , has a history of depression and anxiety, and was admitted on 01/27/25 17:45 on a 201 voluntary commitment for anxiety and depression. Presentation consistent with major depressive disorder, recurrent, moderate to severe with anxious distress. Patient presents history of major depressive episodes with past resolution with sertraline. No clear evidence for generalized anxiety disorder and will clarify. No history of salas/hypomania/psychosis. Recent depressive episode likely triggered due to social isolation and health scare. A: Today presenting improved sleep, mood, and outlook. Diarrhea resolved. Has been tolerating propranolol well with more stable blood pressure. Plan to increase sertraline to 75 mg daily today. Overall, I spent a total of 35 minutes with this case including review of chart records, nursing report, review of lab work, direct evaluation of the patient at bedside, counseling the patient, multidisciplinary team meeting, orders, and documentation in the electronic health record. (1) Major depressive disorder, recurrent episode, moderate with anxious distress: (2) Weight loss, non-intentional: (3) Palpitations: (4) Vitamin D insufficiency: Plan 01/31/2025: Increase sertraline to 75 mg daily 01/30/2025: Reduce propranolol to 5 mg 3 times daily Start lorazepam 0.5 mg at bedtime 01/29/2025: MNPR due to excess anxiety Start daily fiber supplement Start Vit D 5000u daily Automatic thoughts worksheet 01/28/2025:The patient was admitted to the [facility] ([facility] mental health unit) on q15 min checks (behavioral with suicide precautions) for safety. The patient will participate in group, recreational, and milieu therapies and will be offered additional individual and family sessions as clinically appropriate. -Increase sertraline to 50 mg daily -Start propranolol 10 mg 3 times daily -Draw labs: Hemoglobin A1c, fasting lipid panel, vitamin D, vitamin B12 Inventory Assets Strengths: social supports, intelligence Needs: improved coping skills, medication adjustment Suicide Risk Level Suicide Risk Level: Moderate (q15 min suicide checks) Risk Factors Assessment Male: No : Yes Do You Have Access To A Gun?: Yes Health Problems: No Mental Health Diagnoses: Yes Substance Use Disorders: No Previous Attempt: No Family History of Suicide: No Previous Psychiatric Hospitalization: No Hopelessness: No Protective Factors Assessment Anabaptism Beliefs: Yes : Yes Responsible for Young Children: No Employed: No Stable Relationships: Yes Supportive Family: Yes Good Rapport with Provider: Yes Absence of Any Risk Factors Above: No Interval History Identifying Information CORNELIA ANDRES is a 59-year-old F who currently lives with , has a history of depression and anxiety, and was admitted on 01/27/25 17:45 on a 201 voluntary commitment for anxiety and depression. Chief Complaint Anxiety/Depression Review of Systems Sleep Information Total Hours of Sleep: 5.5 Meal Information Percent Meal Consumed - Breakfast: 75 Percent Meal Consumed - Lunch: 85 Percent Meal Consumed - Dinner: 90 Nutrition Comment: patient c/o upset stomach Subjective Subjective Patient was seen & assessed and interval progress reviewed with treatment team nursing and social work Patient rates mood 7 out of 10. Slept 5.5 hours. Blood pressures are within normal range. No diarrhea episodes overnight. Has been eating well. She reports sleeping better and was able to stay asleep at the beginning of the night. Feels more rested. Feels less of a "adrenaline" response and is calmer. Complains of some sweats upon awakening. Reports increased anxiety in the morning. No bowel movement since yesterday. She denies suicidal ideation. She reports future fears of going back home and not knowing what to do. She appreciates the structure of the unit. Has been speaking with her who says that she is doing much better. Physical Exam Mental Examination Appearance: Well Groomed Eye Contact: Maintains Eye Contact Motor Behavior: Unremarkable Speech: Soft Mood: Euthymic and Calm Affect: Appropriate and Calm Thought Process: Intact and Linear Thought Content: Intact Hallucinations: None Insight: Fair (to limited) Judgement: Fair (to limited) Vital Signs (Past 24 Hours) Last Vital Signs Temp 36.7 C 01/31/25 06:30 Pulse 72 01/31/25 08:45 Resp 16 01/31/25 06:30 BP 116/70 01/31/25 08:45 Pulse Ox 96 01/27/25 19:25 O2 Del Method Room Air 01/27/25 19:25 Results & Data ([facility]) Current Inpatient Medications Current Inpatient Medications: Current Inpatient Medications Acetaminophen (Acetaminophen 325 Mg Tab) 650 mg PO Q4H PRN PRN Reason: Headache or Minor Fever Stop: 02/26/25 19:07 Al Hydrox/Mg Hydrox/Simethicone (Aluminum/Magnesium Susp 30 Ml Udc) 30 ml PO Q4H PRN PRN Reason: GI Upset Stop: 02/26/25 19:07 Bismuth Subsalicylate (Bismuth Subsalicylate 262 Mg Chew) 2 tab PO Q30M PRN PRN Reason: Loose Stool/Diarrhea Stop: 02/26/25 19:07 Hydroxyzine HCl (Hydroxyzine Hcl 25 Mg Tab) 50 mg PO HSZ PRN PRN Reason: Insomnia Stop: 02/26/25 19:07 Last Admin: 01/29/25 20:57 Dose: 50 mg Hydroxyzine HCl (Hydroxyzine Hcl 25 Mg Tab) 25 mg PO Q4H PRN PRN Reason: Anxiety Stop: 02/26/25 19:07 Last Admin: 01/28/25 10:59 Dose: 25 mg Lorazepam (Lorazepam 0.5 Mg Tab) 0.5 mg PO BID PRN PRN Reason: Anxiety Stop: 02/26/25 19:16 Last Admin: 01/30/25 12:09 Dose: 0.5 mg Lorazepam (Lorazepam 0.5 Mg Tab) 0.5 mg PO HS MANJU Stop: 03/01/25 21:59 Last Admin: 01/30/25 20:49 Dose: 0.5 mg Magnesium Hydroxide (Magnesium Hydroxide Susp 30 Ml Udc) 30 ml PO DAILY PRN PRN Reason: Constipation Stop: 02/26/25 19:07 Last Admin: 01/29/25 09:18 Dose: 30 ml Propranolol HCl (Propranolol Hcl 10 Mg Tab) 5 mg PO TID MNAJU Stop: 03/01/25 13:59 Last Admin: 01/31/25 08:48 Dose: 5 mg Psyllium Hydrophilic Mucilloid (Psyllium Or Guar Gum Fiber 4gm Packet) 4 gm PO QAM MANJU Stop: 02/28/25 12:29 Last Admin: 01/31/25 11:13 Dose: Not Given Rosuvastatin Calcium (Rosuvastatin Calcium 10 Mg Tab) 10 mg PO HS MANJU Stop: 02/27/25 21:59 Last Admin: 01/30/25 20:49 Dose: 10 mg Sertraline HCl (Sertraline Hcl 50 Mg Tablet) 75 mg PO DAILY MANJU Stop: 03/03/25 08:59 Sodium Chloride (Sodium Chloride 0.65% Na Soln 45 Ml ([place])) 1 - 2 sprays NA PRN PRN PRN Reason: Nasal Dryness/Congestion Stop: 02/26/25 19:07 Vitamin D (Cholecalciferol 125 Mcg (5,000 Units) Tab) 125 mcg PO QAM MANJU Stop: 02/28/25 15:14 Last Admin: 01/31/25 08:48 Dose: 125 mcg Mental Health & Subst Abuse Tx Psychiatrist Name of Psychiatrist: [facility] Psychiatrist's Date Of Appointment With Psychiatric Provider: 02/13/25 Time of Appointment with Psychiatrist: 11AM Psychiatric Appointment Comment: In person appt Therapist Name of Therapist: Rajani Lee Therapist's Date of Therapist Appointment: 02/09/25 Time of Therapist Appointment: 11AM Therapy Appointment Comment: appt on 02/02 canceled Board Filler Name of Board Filler: None Post Discharge Appointments Primary Care Physician Name Of Family Doctor/PCP: Dr. Jose Martin Rivas Contact Information Discharge Discharge Address: [id number] [place] [address], [place] [address]
[2025-02-01] MEDS: SERTRALINE HCL 50 MG TABLET PO SCH (08:49)
--- NOTE | 2025-02-01 11:36 | Psychiatric Progress Note ---
Date of Service February 01, 2025 Impression / Recommendations Impression CORNELIA ANDRES is a 59-year-old F who currently lives with , has a history of depression and anxiety, and was admitted on 01/27/25 17:45 on a 201 voluntary commitment for anxiety and depression. Presentation consistent with major depressive disorder, recurrent, moderate to severe with anxious distress. Patient presents history of major depressive episodes with past resolution with sertraline. No clear evidence for generalized anxiety disorder and will clarify. No history of salas/hypomania/psychosis. Recent depressive episode likely triggered due to social isolation and health scare. A: Patient continues to have physical symptoms of anxiety and appears distressed at times. Worse in the morning. Overall has presented improved mood with a more reactive and bright affect. Has been tolerating the sertraline well with no increase in GI distress. Today she was counseled about mindfulness meditation and breathing exercises. She was encouraged to engage in regular cognitive behavioral therapy and goal setting with her therapist. Overall, I spent a total of 35 minutes with this case including review of chart records, nursing report, review of lab work, direct evaluation of the patient at bedside, counseling the patient, multidisciplinary team meeting, orders, and documentation in the electronic health record. (1) Major depressive disorder, recurrent episode, moderate with anxious distress: (2) Weight loss, non-intentional: (3) Palpitations: (4) Vitamin D insufficiency: Plan 02/01/2025: Continue medications and treatment plan 01/31/2025: Increase sertraline to 75 mg daily 01/30/2025: Reduce propranolol to 5 mg 3 times daily Start lorazepam 0.5 mg at bedtime 01/29/2025: MNPR due to excess anxiety Start daily fiber supplement Start Vit D 5000u daily Automatic thoughts worksheet 01/28/2025:The patient was admitted to the [facility] ([facility] inpatient mental health unit) on q15 min checks (behavioral with suicide precautions) for safety. The patient will participate in group, recreational, and milieu therapies and will be offered additional individual and family sessions as clinically appropriate. -Increase sertraline to 50 mg daily -Start propranolol 10 mg 3 times daily -Draw labs: Hemoglobin A1c, fasting lipid panel, vitamin D, vitamin B12 Inventory Assets Strengths: social supports, intelligence Needs: improved coping skills, medication adjustment Suicide Risk Level Suicide Risk Level: Moderate (q15 min suicide checks) Risk Factors Assessment Male: No : Yes Do You Have Access To A Gun?: Yes Health Problems: No Mental Health Diagnoses: Yes Substance Use Disorders: No Previous Attempt: No Family History of Suicide: No Previous Psychiatric Hospitalization: No Hopelessness: No Protective Factors Assessment Spiritism Beliefs: Yes : Yes Responsible for Young Children: No Employed: No Stable Relationships: Yes Supportive Family: Yes Good Rapport with Provider: Yes Absence of Any Risk Factors Above: No Interval History Identifying Information CORNELIA ANDRES is a 59-year-old F who currently lives with , has a history of depression and anxiety, and was admitted on 01/27/25 17:45 on a 201 voluntary commitment for anxiety and depression. Chief Complaint Anxiety/depression Review of Systems Sleep Information Total Hours of Sleep: 6.5 Meal Information Percent Meal Consumed - Breakfast: 20 Percent Meal Consumed - Lunch: 85 Percent Meal Consumed - Dinner: 75 Nutrition Comment: patient c/o upset stomach Subjective Subjective Patient was seen & assessed and interval progress reviewed with treatment team nursing and social work Slept 6.5 hours. No GI distress. Family visited. Complains of morning anxiety being worse. Complains of sweaty palms. Received Ativan as needed in the a.m. She denied suicidal ideation. Reports that her mind is racing. Feels the Ativan was somewhat effective for anxiety. Reports anxiety about going home and being in distress situation. Requesting for anxiety PRN once she is at home. Asks about how to optimize therapy and psychiatric care on outpatient basis. Physical Exam Mental Examination Appearance: Well Groomed Eye Contact: Maintains Eye Contact Motor Behavior: Unremarkable Speech: Soft Mood: Euthymic and Calm Affect: Appropriate and Calm Thought Process: Intact and Linear Thought Content: Intact Hallucinations: None Insight: Fair (to limited) Judgement: Fair (to limited) Vital Signs (Past 24 Hours) Last Vital Signs Temp 37 C 02/01/25 06:30 Pulse 82 02/01/25 06:30 Resp 16 02/01/25 06:30 BP 110/68 02/01/25 06:30 Pulse Ox 96 01/27/25 19:25 O2 Del Method Room Air 01/27/25 19:25 Results & Data ([facility]) Current Inpatient Medications Current Inpatient Medications: Current Inpatient Medications Acetaminophen (Acetaminophen 325 Mg Tab) 650 mg PO Q4H PRN PRN Reason: Headache or Minor Fever Stop: 02/26/25 19:07 Al Hydrox/Mg Hydrox/Simethicone (Aluminum/Magnesium Susp 30 Ml Udc) 30 ml PO Q4H PRN PRN Reason: GI Upset Stop: 02/26/25 19:07 Bismuth Subsalicylate (Bismuth Subsalicylate 262 Mg Chew) 2 tab PO Q30M PRN PRN Reason: Loose Stool/Diarrhea Stop: 02/26/25 19:07 Hydroxyzine HCl (Hydroxyzine Hcl 25 Mg Tab) 50 mg PO HSZ PRN PRN Reason: Insomnia Stop: 02/26/25 19:07 Last Admin: 01/29/25 20:57 Dose: 50 mg Hydroxyzine HCl (Hydroxyzine Hcl 25 Mg Tab) 25 mg PO Q4H PRN PRN Reason: Anxiety Stop: 02/26/25 19:07 Last Admin: 01/28/25 10:59 Dose: 25 mg Lorazepam (Lorazepam 0.5 Mg Tab) 0.5 mg PO BID PRN PRN Reason: Anxiety Stop: 02/26/25 19:16 Last Admin: 02/01/25 08:24 Dose: 0.5 mg Lorazepam (Lorazepam 0.5 Mg Tab) 0.5 mg PO HS MANJU Stop: 03/01/25 21:59 Last Admin: 01/31/25 21:18 Dose: 0.5 mg Magnesium Hydroxide (Magnesium Hydroxide Susp 30 Ml Udc) 30 ml PO DAILY PRN PRN Reason: Constipation Stop: 02/26/25 19:07 Last Admin: 01/29/25 09:18 Dose: 30 ml Propranolol HCl (Propranolol Hcl 10 Mg Tab) 5 mg PO TID MANJU Stop: 03/01/25 13:59 Last Admin: 02/01/25 08:51 Dose: 5 mg Psyllium Hydrophilic Mucilloid (Psyllium Or Guar Gum Fiber 4gm Packet) 4 gm PO QAM MANJU Stop: 02/28/25 12:29 Last Admin: 02/01/25 08:49 Dose: Not Given Rosuvastatin Calcium (Rosuvastatin Calcium 10 Mg Tab) 10 mg PO HS MANJU Stop: 02/27/25 21:59 Last Admin: 01/31/25 21:18 Dose: 10 mg Sertraline HCl (Sertraline Hcl 50 Mg Tablet) 75 mg PO DAILY MANJU Stop: 03/03/25 08:59 Last Admin: 02/01/25 08:49 Dose: 75 mg Sodium Chloride (Sodium Chloride 0.65% Na Soln 45 Ml ([place])) 1 - 2 sprays NA PRN PRN PRN Reason: Nasal Dryness/Congestion Stop: 02/26/25 19:07 Vitamin D (Cholecalciferol 125 Mcg (5,000 Units) Tab) 125 mcg PO QAM MANJU Stop: 02/28/25 15:14 Last Admin: 02/01/25 08:52 Dose: 125 mcg Mental Health & Subst Abuse Tx Psychiatrist Name of Psychiatrist: [facility] Psychiatrist's Date Of Appointment With Psychiatric Provider: 02/13/25 Time of Appointment with Psychiatrist: 11AM Psychiatric Appointment Comment: In person appt Therapist Name of Therapist: Rajani Lee Therapist's Date of Therapist Appointment: 02/09/25 Time of Therapist Appointment: 11AM Therapy Appointment Comment: appt on 02/02 canceled Evaluation Engineer Name of Evaluation Engineer: None Post Discharge Appointments Primary Care Physician Name Of Family Doctor/PCP: Dr. Jose Martin Rivas-[facility] Contact Information Discharge Discharge Address: [address], [place] [address]
[2025-02-01 21:49] VITALS: RESP 16; TEMP 98.4; O2SAT 98
--- NOTE | 2025-02-02 09:42 | Discharge Summary ---
Date of Service February 02, 2025 History of Present Illness Patient reports feeling more anxious and depressed at the end of October. At that time she was getting mammogram results and had to do a recheck. Reports spiraling into worsening anxiety thinking of the worst case scenario. This was heightened by the fact that she has multiple fan members with a history of cancer from cancer. In addition her great nephew has had escalating health problems and this was on her mind. Since then has had a low mood, poor appetite, sleep dysfunction, amotivation, isolating behavior, increased physical anxiety. Complains of increased heart rate, sweating, shaking, crying spells, stomach discomfort. Denies a feeling of doom or tunnel vision. Reports past Zoloft for a few years and was effective and self-discontinued on February 2024. Denies periods of excess worry between depressive episodes. Was recently placed on Lexapro however patient was having crying spells and possible panic attack and was discontinued by ER physician. Reports feeling better here in the structured environment. 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 Denies having any GI side effects from Zoloft. Patient complains of depressed mood, inability to enjoy activities, disturbances in sleep, loss of interest, change in appetite, decreased libido, racing thoughts, crying spells, anxiety attacks, avoidance symptoms, hopelessness. Reports history of suicidal ideation however denies currently. Last SI thought was a few days ago. Denies current plan or means. Wants to learn improved coping strategies for anxiety and depression and get medication adjustments. Substance and alcohol use: No past drug or alcohol treatment. Denies alcohol or drug use.Past tobacco smoker quit 40 years ago. No caffeinated beverages daily. Medical history: Last menstrual period at 46 years of age. 4 pregnancies to live births. Family history of prostate cancer, pancreatic cancer. Psychiatric history: No past psychiatric hospitalizations. Depression and anxiety in sister and mother and alcohol dependence in brother. Sister and mother both on Lexapro. Past Psychiatric medications: clonazepam (for sleep), buspirone (for anxiety/ineffective), sertraline (Up to 100 mg,effective and was on it for a few years), Ambien (for sleep, 10 years ago, not currently taking), Ativan (for anxiety and sleep, effective), escitalopram (prematurely discontinued), Effexor (12 to 15 years ago and effective) Social history:Has outpatient PCP Dr. Jose Martin Rivas [facility], outpatient psychiatrist Dr. Hammond [facility], and counselor Rajani Cain at [facility]. Has been going to outpatient appointments and taking meds as prescribed. Resides in [place], lives in a home with for the past 39 years. Denies violence in the home and can return home after discharge. Has access to transportation. no housing concerns. Grew up in a supportive household with 6 siblings. Father worked in construction and mother was a homemaker. Left home at 16 years of age. Sister in 2011 and father in 2014. Currently and sexually active with a heterosexual orientation. His spouse is retired. No past marriages. 2 adult children. Highest grade completed is 12th grade. 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 No legal problems or arrests. No particular temple or spiritual group. Exercises and eats healthy. Physical Exam Mental Examination Appearance: Well Groomed Eye Contact: Maintains Eye Contact Motor Behavior: Unremarkable Speech: Soft Mood: Euthymic and Calm Affect: Appropriate and Calm Thought Process: Intact and Linear Thought Content: Intact Hallucinations: None Insight: Fair (to limited) Judgement: Fair (to limited) Vital Signs (Past 24 Hours) Last Vital Signs Temp 36.9 C 02/02/25 06:34 Pulse 66 02/02/25 09:06 Resp 16 02/02/25 06:34 BP 123/70 02/02/25 09:06 Pulse Ox 98 02/01/25 21:20 O2 Del Method Room Air 02/01/25 21:20 Principal Diagnosis Major depressive disorder, recurrent episode, moderate with anxious distress: Psychiatric Data See daily stay summary. In short, safety was maintained and the patient was cooperative with care. Medication changes included starting Sertraline 100mg daily, Propranolol 10mg TID, and short term Lorazepam for insomnia and they tolerated this well. A family session was held and safety plan was completed prior to discharge. Pt presented a significant improvement in physical anxiety symptoms with a brighter and more reactive affect. Likely excess anxiety 2/2 depression rather than PAULA. Was encouraged to work on CBT and goal setting with therapist. No suicidal ideation through the hospitalization and she is able to contract for safety. Day of Discharge Assessment Today the patient voices readiness for discharge. They note improvement in mood and deny thoughts to harm self or others. Thoughts remain organized and they are improved from admission. There is no evidence of psychosis. They agree to take mediations as prescribed and keep follow-up appointments. They are stable for discharge to outpatient level of care. Transition of Care Transition Of Care Record: was reviewed with the patient Advance Directives Advance Directives Information Provided: Yes Advance Directives: No Mental Health Advance Directive: No Advance Directives on File: No Living Will: No Power of Meat Counter Worker: No Advance Directives Reason:: Declines as Mental Health Visit. Risk Factors Assessment Male: No : Yes Do You Have Access To A Gun?: Yes Health Problems: No Mental Health Diagnoses: Yes Substance Use Disorders: No Previous Attempt: No Family History of Suicide: No Previous Psychiatric Hospitalization: No Hopelessness: No Protective Factors Assessment Restorationist Beliefs: Yes : Yes Responsible for Young Children: No Employed: No Stable Relationships: Yes Supportive Family: Yes Good Rapport with Provider: Yes Absence of Any Risk Factors Above: No Discharge Data Lab Results 01/27/25 01/27/25 01/27/25 15:31 15:35 15:40 WBC 8.46 RBC 4.96 Hgb 14.3 Hct 43.4 MCV 87.5 MCH 28.8 MCHC 32.9 RDW Std Deviation 42.1 RDW Coeff of Greg 13.2 Plt Count 261 MPV 12.0 Immature Gran % (Auto) 0.2 Neut % (Auto) 73.8 Lymph % (Auto) 19.9 Garza % (Auto) 4.8 Eos % (Auto) 0.9 Baso % (Auto) 0.4 Neut # (Auto) 6.24 Lymph # (Auto) 1.68 Garza # (Auto) 0.41 Eos # (Auto) 0.08 Baso # (Auto) 0.03 Immature Gran # (Auto) 0.02 Sodium 137 Potassium 3.8 Chloride 100 Carbon Dioxide 33 H Anion Gap 4 BUN 10 Creatinine 1.09 Est Cr Clr Drug Dosing 46.8 eGFR 57.80 BUN/Creatinine Ratio 9.2 L Glucose 113 H Estimat Average Glucose Hemoglobin A1c Calcium 10.3 Total Bilirubin 1.6 H AST 21 ALT 13 Alkaline Phosphatase 70 Total Protein 8.4 H Albumin 5.1 H Globulin 3.3 Albumin/Globulin Ratio 1.5 Triglycerides Cholesterol LDL Cholesterol, Calc VLDL Cholesterol, Calc HDL Cholesterol Cholesterol/HDL Ratio Vitamin B12 25-OH Vitamin D Total TSH 1.827 Urine Color Yellow Urine Appearance Clear Urine pH 5.0 Ur Specific [place] 1.009 Urine Protein Negative Urine Glucose (UA) Negative Urine Ketones Negative Urine Blood Negative Urine Nitrite Negative Urine Bilirubin Negative Urine Urobilinogen Negative Ur Leukocyte Esterase Negative Salicylates < 3.0 L Urine Opiates Screen Neg Ur Methadone, Qual Neg Urine Fentanyl Screen Neg Acetaminophen < 3 L Urine Barbiturates Neg Ur Phencyclidine (PCP) Neg U Amphetamin/Meth Scrn Neg MDMA (Ecstasy) Screen Neg U Benzodiazepines Scrn Neg Ur Cocaine Metabolite Neg U Marijuana (THC) Screen Neg Ethyl Alcohol mg/dL < 10.0 SARS-CoV-2, RNA, NAAT NEGATIVE 01/29/25 08:13 WBC RBC Hgb Hct MCV MCH MCHC RDW Std Deviation RDW Coeff of Greg Plt Count MPV Immature Gran % (Auto) Neut % (Auto) Lymph % (Auto) Garza % (Auto) Eos % (Auto) Baso % (Auto) Neut # (Auto) Lymph # (Auto) Garza # (Auto) Eos # (Auto) Baso # (Auto) Immature Gran # (Auto) Sodium Potassium Chloride Carbon Dioxide Anion Gap BUN Creatinine Est Cr Clr Drug Dosing eGFR BUN/Creatinine Ratio Glucose Estimat Average Glucose 111 Hemoglobin A1c 5.5 Calcium Total Bilirubin AST ALT Alkaline Phosphatase Total Protein Albumin Globulin Albumin/Globulin Ratio Triglycerides 88 Cholesterol 143 LDL Cholesterol, Calc 76 VLDL Cholesterol, Calc 18 HDL Cholesterol 49 Cholesterol/HDL Ratio 2.9 Vitamin B12 300 25-OH Vitamin D Total 23.7 L TSH Urine Color Urine Appearance Urine pH Ur Specific [place] Urine Protein Urine Glucose (UA) Urine Ketones Urine Blood Urine Nitrite Urine Bilirubin Urine Urobilinogen Ur Leukocyte Esterase Salicylates Urine Opiates Screen Ur Methadone, Qual Urine Fentanyl Screen Acetaminophen Urine Barbiturates Ur Phencyclidine (PCP) U Amphetamin/Meth Scrn MDMA (Ecstasy) Screen U Benzodiazepines Scrn Ur Cocaine Metabolite U Marijuana (THC) Screen Ethyl Alcohol mg/dL SARS-CoV-2, RNA, NAAT Hospital Course (1) Major depressive disorder, recurrent episode, moderate with anxious distress: (2) Weight loss, non-intentional: (3) Palpitations: (4) Vitamin D insufficiency: Plan 02/01/2025: Continue medications and treatment plan 01/31/2025: Increase sertraline to 75 mg daily 01/30/2025: Reduce propranolol to 5 mg 3 times daily Start lorazepam 0.5 mg at bedtime 01/29/2025: MNPR due to excess anxiety Start daily fiber supplement Start Vit D 5000u daily Automatic thoughts worksheet 01/28/2025:The patient was admitted to the [facility]) on q15 min checks (behavioral with suicide precautions) for safety. The patient will participate in group, recreational, and milieu therapies and will be offered additional individual and family sessions as clinically appropriate. -Increase sertraline to 50 mg daily -Start propranolol 10 mg 3 times daily -Draw labs: Hemoglobin A1c, fasting lipid panel, vitamin D, vitamin B12 Mental Health & Subst Abuse Tx Psychiatrist Name of Psychiatrist: [facility] Psychiatrist's Date Of Appointment With Psychiatric Provider: 02/13/25 Time of Appointment with Psychiatrist: 11AM Psychiatric Appointment Comment: In person appt Therapist Name of Therapist: Rajani Lee Therapist's Date of Therapist Appointment: 02/09/25 Time of Therapist Appointment: 11AM Therapy Appointment Comment: appt on 02/02 canceled Gizzard Skin Remover Name of Gizzard Skin Remover: None Post Discharge Appointments Primary Care Physician Name Of Family Doctor/PCP: Dr. Jose Martin Rivas-[facility] Contact Information Discharge Discharge Address: [address] [place] [address] Discharge Plan Discharge Items Patient Disposition: Home - Self-Care Reason For Visit: UNSPECIFIED DEPRESSIVE D/O Discharge Diagnosis: (1) Major depressive disorder, recurrent episode, moderate with anxious distress: (2) Weight loss, non-intentional: (3) Palpitations: (4) Vitamin D insufficiency: Condition on Discharge: Fair Activity: Resume your previous activity Non-emergency contact: Primary Care Provider, Psychiatrist and Therapist Call non-emergency contact if: you have any medication questions and your symptoms worsen Follow-up/Referrals: Jose Martin Rivas DO [Primary Care Provider] - Diet: Regular Addtl Attending Provider Instructions: Continue Sertraline 100mg daily for depression/anxiety Continue Propranolol 5mg three times a day for physical symptoms of anxiety Take Lorazepam 0.5mg NEEDED for sleep Take Hydroxyzine 50mg NEEDED for sleep/anxiety (if too powerful can take half dose) Work with therapist on cognitive behavioral therapy for anxiety management and personal goal setting Pending Studies at Discharge: No Stand-Alone Forms: [employer] Smoking Cessation Medications and DC Order Prescriptions: New propranolol 10 mg Tablet 5 mg PO TID Qty: 45 0RF lorazepam 0.5 mg Tablet 0.5 mg PO HS PRN (Reason: Insomnia) Qty: 21 0RF sertraline 100 mg tablet 100 mg PO DAILY Qty: 30 0RF cholecalciferol (vitamin D3) 125 mcg (5,000 unit) Tablet 125 mcg PO QAM Qty: 30 0RF hydroxyzine HCl 50 mg tablet 50 mg PO HSZ PRN (Reason: Anxiety/Insomnia) Qty: 60 0RF Continued rosuvastatin [Crestor] 10 mg tablet 10 mg PO DAILY Qty: 90 3RF Discontinued lorazepam 0.5 mg tablet 1 mg PO HS PRN (Reason: anxiety) Qty: 90 0RF Rx Instructions: 1-2 tabs PRN buspirone 5 mg tablet See Rx Instructions PO BID Qty: 60 0RF Rx Instructions: Patient reports being tapered off - currently taking 5mg QAM and 7.5mg QHS sertraline [Zoloft] 25 mg tablet 50 mg PO DAILY clonazepam 0.5 mg Tablet 0.5 mg PO BID Rx Instructions: TAKES 1/2 TABLET QAM TAKES 1 TABLET QHS Discharge Orders: Discharge Order (Routine); Ordered 02/02/25 Ordered By: Ozzie Omalley Admission Data Admit Date/Time: 01/27/25 17:45 Attending Provider: Ozzie Omalley Admit Provider: Ozzie Omalley Primary Care Provider: Jose Martin Rivas C[place] [address] D/C day mgmt > 30 min Patient Type Established History Detailed Exam Detailed Medical Decision Making Moderate Complexity Diagnoses Major depressive disorder, recurrent episode, moderate with anxious distress F33.1 Weight loss, non-intentional R63.4 Palpitations R00.2 Vitamin D insufficiency E55.9
[2025-02-02 09:58] VITALS: BP 121/69; PULSE 60
== END 2025-02-02 10:47 | disposition home or self-care (01) | DRG 885 ==
LOC: ED 14:43 → 3S 17:45